=== PATIENT | male | born 1950 | race Caucasian/White ===

== ENCOUNTER → 2017-06-20 08:02 | Outpatient (CLI) | payer MEDICARE, SELFPAY ==
--- NOTE | 2017-06-20 08:30 | US_ITS ---
US abdomen complete HISTORY: Follow-up hepatitis C ITS.REASON: HEP C ORDERING PHYSICIAN: Tiffany Hassan PATIENT AGE: 67 years COMPARISON: 12/23/2016 FINDINGS: PANCREAS:Unremarkable. No obvious mass or abnormal fluid collection. No ductal dilatation LIVER:There remains coarse echogenicity of the liver consistent with hepatitis. No focal liver lesions are evident. There is appropriate directional blood flow within the portal vein. Portal vein is upper normal at 12 and 13 mm A 16 mm cyst is present in the left hepatic lobe unchanged RIGHT KIDNEY:Unremarkable. Normal size and echogenicity. No hydronephrosis LEFT KIDNEY:Unremarkable. No hydronephrosis. Normal size and echogenicity. GALLBLADDER:No gallstones, gallbladder wall thickening, pericholecystic fluid, or biliary dilatation. AORTA:No evidence of aneurysmal dilatation. SPLEEN:Mild splenomegaly at 16 cm ASCITES:None demonstrated. IMPRESSION: Stable ultrasound of the abdomen compared to the previous study. There remains coarse echogenicity of the liver in keeping with patient's history of cirrhosis. Benign-appearing anterior liver cyst unchanged. Portal vein is upper normal and there is splenomegaly which may be seen with portal hypertension not significant changed.
== END ==
PROVIDERS: PCP Family Medicine; Visit Provider Nurse Practitioner Acute Care
DX: B19.20 Unspecified viral hepatitis C without hepatic coma (principal)
CPT/HCPCS: 76700

== ENCOUNTER → 2021-02-23 15:18 | Outpatient (CLI) | payer MEDICARE, SELFPAY ==
--- NOTE | 2021-02-23 15:30 | ECG_ITS ---
APPROVED REPORT Exam: Resting ECG HR:96 bpm ECG Measurements Heart Rate 96 AXES MI 132 P 74 QRSd 74 QRS 37 QT 362 T 44 QTc 457 Conclusion Sinus rhythm with premature supraventricular complexes with occasional premature ventricular complexes Otherwise normal ECG Electronically signed by : Elias Wagner MD 02/23/2021 16:31:53
== END ==
PROVIDERS: PCP Family Medicine; Visit Provider Physician Assistant
DX: I49.9 Cardiac arrhythmia, unspecified (principal)
CPT/HCPCS: 93005

== ENCOUNTER → 2021-05-25 09:27 | Outpatient (CLI) | payer MEDICARE, SELFPAY ==
--- NOTE | 2021-05-25 09:38 | XR_ITS ---
FINAL REPORT CLINICAL HISTORY: RT wrist pain carpal tunnel x 2 years FINDINGS: RIGHT WRIST Three views demonstrate no acute fracture or dislocation. There are moderate to severe degenerative changes. There is a chronic calcification along the dorsal aspect of the radiocarpal joint. There is a loose body adjacent to the 1st CMC joint. There are vascular calcifications. IMPRESSION: Degenerative changes as described. Reviewed, Interpreted and Dictated by Corbin Wolff III, MD Transcribed by Mylene Hunt Authenticated by Corbin Wolff III, MD on 05/25/2021 11:03:49 AM [facility]
[2021-05-25 11:21] LABS: Basophils # 0.1 K/mm3 (0-0.2); Basophils % 0.7 % (0.1-2.0); Eosinophils # 0.3 K/mm3 (0.0-0.4); Hematocrit 46.8 % (42.0-52.0); Hemoglobin 15.3 g/dL (14.1-18.0); Lymphocytes # 1.5 K/mm3 (0.7-4.5); Lymphocytes % 15.2 % (10-50); Mean Corpuscular HGB Conc 32.7 g/dL (31.8-35.4); Mean Corpuscular Hemoglobin 32.6 pg (27.0-31.2); Mean Corpuscular Volume 99.6 fl (80-94); Mean Platelet Volume 8.9 fl (7.4-10.4); Monocytes # 0.6 K/mm3 (0.1-1.0); Monocytes % 6.2 % (1.7-9.3); Neutrophils # 7.1 K/mm3 (1.8-7.8); Neutrophils % 74.8 % (37.0-80.0); Platelet Count 203 K/mm3 (142-424); Red Cell Distribution Width 13.8 % (11.5-17.5); White Blood Count 9.5 K/mm3 (4.8-10.8)
[2021-05-25 13:25] LABS: Alanine Aminotransferase 36 U/L (12-78); Albumin/Globulin Ratio 1.7 (1.1-1.8); Alkaline Phosphatase 70 U/L (38-126); Anion Gap 15.3 mEq/L (5-15); Aspartate Amino Transferase 43 U/L (17-59); Bilirubin,Total 1.1 mg/dl (0.2-1.3); Blood Urea Nitrogen 25 mg/dl (9-20); Carbon Dioxide 29 mmol/L (22.0-30.0); Chloride 101 mmol/L (98-107); Estimated Glomerular Filt Rate 66 ml/min (>60); GFR (African American) 80 ML/MIN (>60); Globulin 2.9 g/dL (1.3-3.2); Glucose 111 mg/dl (74-100); Potassium 5.3 mmoL/L (3.5-5.1); Sodium 140 mmol/L (136-145); Total Protein,Serum 7.9 g/dl (6.3-8.2)
== END ==
PROVIDERS: PCP Family Medicine; Visit Provider Orthopaedic Surgery
DX: M25.531 Pain in right wrist (principal); Z01.818 Encounter for other preprocedural examination
CPT/HCPCS: 36415; 73110; 80053; 85025

== ENCOUNTER → 2021-06-20 09:10 | Outpatient (CLI) | payer MEDICARE, SELFPAY | PROVIDERS: PCP Family Medicine; Visit Provider Orthopaedic Surgery | DX: Z01.818 Encounter for other preprocedural examination (principal); Z11.52 Encounter for screening for COVID-19 | CPT/HCPCS: C9803; U0003; U0005 ==

== ENCOUNTER → 2021-06-27 08:44 | Outpatient (CLI) | payer MEDICARE, SELFPAY | PROVIDERS: PCP Family Medicine; Visit Provider Orthopaedic Surgery | DX: Z01.812 Encounter for preprocedural laboratory examination (principal); Z11.52 Encounter for screening for COVID-19 | CPT/HCPCS: C9803; U0003; U0005 ==

== ENCOUNTER 2021-06-29 06:04 | Day surgery (SDC) | payer MEDICARE, SELFPAY ==
[2021-06-29 06:18] VITALS: BP 156/97; PULSE 97; RESP 16; TEMP 36.9; O2SAT 98; BMI 25.8
[2021-06-29 08:28] VITALS: BP 124/73; PULSE 61; RESP 18; TEMP 36.5; O2SAT 96
--- NOTE | 2021-06-29 08:32 | HMH.OPNOTE ---
Date of procedure: 06/29/21 Pre-op Diagnosis:: right carpal tunnel syndrome Post-op Diagnosis:: same Procedure performed:: 93111: Right endoscopic carpal tunnel release Surgeon:: Torito Zhou JR, MD Anesthesia: MAC Estimated blood loss (mL): 2 Operative findings:: Release of transverse carpal ligament confirmed endoscopically Operative note:: 71-year-old male with carpal tunnel syndrome, thenar wasting. This caused difficulty with activities of daily living and the burning and tingling would sometimes wake him up at night. I had a discussion with him regarding further management. He was interested in more durable intervention. I recommended right endoscopic carpal tunnel release. He was amenable to plan. Patient was identified in preoperative holding. Operative site was marked in indelible ink. History, physical, consent were reviewed and updated. Patient was surrendered to the anesthesia team, taken to the operative suite, placed supine on a well-padded operative table. Brachial tourniquet was applied. Anesthesia was induced. The operative extremity was prepped and draped in the usual sterile fashion. The operative team donned sterile gowns and gloves and a timeout was called. All in attendance agreed regarding the patient's identity, procedure, operative site. Weight-based dose of antibiotics was given prior to incision. I made a transverse incision at the proximal wrist crease proximal to the transverse carpal ligament. I bluntly dissected through skin and subcutaneous tissue with care taken to avoid injuring the palmaris longus. I transected the fascia, inserted a dilating probe deep to the transverse carpal ligament and noted its depth distal to the transverse carpal ligament. I then inserted a cannula and scope, visualize the fibers of the transverse carpal ligament. I took to the distal aspect of the transverse carpal ligament to confirm its location, then with a curved blade under endoscopic visualization, transected the fibers of the transverse carpal ligament and noted that they retracted medially and laterally. I removed the cannula, achieved hemostasis, closed with Monocryl, Prineo and Dermabond. Counts were correct x2. There were no apparent complications. I was present and scrubbed for the entire case. Tourniquet time (min): 13 Condition: stable Disposition: PACU Complications:: none apparent
[2021-06-29 08:38] VITALS: BP 127/80; PULSE 75; RESP 20; O2SAT 96
[2021-06-29 08:48] VITALS: BP 126/78; PULSE 68; RESP 18; O2SAT 97
== END 2021-06-29 09:37 | disposition home or self-care (01) ==
LOC: OR 06:05
PROVIDERS: PCP Family Medicine; Visit Provider Orthopaedic Surgery
PROC: (CPT 64721; principal; 2021-06-29 07:30)
DX: G56.01 Carpal tunnel syndrome, right upper limb (principal); Z79.899 Other long term (current) drug therapy
CPT/HCPCS: 64721; 96374

== ENCOUNTER → 2021-10-25 08:44 | Outpatient (CLI) | payer MEDICARE, SELFPAY | PROVIDERS: PCP Family Medicine; Visit Provider Family Medicine | DX: G47.10 Hypersomnia, unspecified (principal); R06.83 Snoring; I10 Essential (primary) hypertension ==

== ENCOUNTER → 2022-04-09 14:33 | Outpatient (POV) | payer MEDICARE, SELFPAY | PROVIDERS: Visit Provider Dermatology | DX: Z00.00 Encounter for general adult medical examination without abnormal findings (principal) ==

== ENCOUNTER 2023-09-03 07:40 | Day surgery (SDC) | payer MEDICARE, SELFPAY ==
[2023-09-01 09:36] VITALS: BMI 25.7
[2023-09-03 08:03] VITALS: BP 142/78; PULSE 52; RESP 16; TEMP 36.4; O2SAT 100
[2023-09-03] MEDS: LACTATED RINGERS 1000ML 1,000 ML 100 ML IV (08:03)
--- NOTE | 2023-09-03 08:23 | ECG_ITS ---
APPROVED REPORT Exam: Resting ECG HR:86 bpm ECG Measurements Heart Rate 86 AXES WY 141 P 55 QRSd 83 QRS -25 QT 367 T 12 QTc 411 Conclusion SINUS RHYTHM WITH FREQUENT VENTRICULAR PREMATURE COMPLEXES ABNORMAL ECG UNCONFIRMED REPORT Electronically signed by : Elias Wagner MD 09/04/2023 15:55:23
[2023-09-03 08:50] VITALS: O2SAT 100
--- NOTE | 2023-09-03 09:17 | HMH.SCOPE ---
Procedure: Date: 09/03/23 Patient Date of :: 1950 Procedure Performed:: Colonoscopy Indications:: The patient is a 73-year-old who presents for surveillance colonoscopy for a history of polyps in the past. Performing Provider:: Dimitrios Gomez MD Referring Provider:: Jose Ladd MD Sedation:: See RN records Procedure:: After placing the patient in the left lateral decubitus position, the colonoscopy was gently inserted into the rectum and under direct visualization advanced to the cecum which was identified by transillumination in the right lower quadrant, identification of the ileocecal valve, appendiceal orifice, and cecal strap. Color, texture, mucosa, and anatomy of the colon were carefully examined with the scope. Findings:: The quality of the bowel preparation was good. There were 2 diminutive polyps found in the ascending colon. The polyps were removed with a cold forceps. There was 1 diminutive polyp in the transverse colon. The polyp was removed with a cold forceps. There were 2 diminutive polyps seen in the sigmoid colon. The polyps removed with a cold forceps. The remaining colon appeared normal. On retroflexion view internal hemorrhoids were seen. Impression: Polyps of ascending colon x 2 Polyp of transverse colon x 1 Polyps of sigmoid colon x 2 Recommendations:: Await pathology results Repeat colonoscopy in 3 to 5 years pending pathology results Complications:: None Estimated blood obtained (mL): 0 Colonoscopy Component Colonoscopy Component Was a colonoscopy performed during today's procedure?: Yes Recommended follow up colonoscopy of at least 10 years?: Yes
[2023-09-03 09:20] VITALS: BP 89/61; PULSE 67; RESP 14; TEMP 36.3; O2SAT 96
[2023-09-03 09:30] VITALS: BP 96/60; PULSE 68; RESP 14; O2SAT 95
[2023-09-03 09:40] VITALS: BP 100/58; PULSE 80; RESP 18; O2SAT 97
[2023-09-03 09:50] VITALS: BP 104/68; PULSE 65; RESP 18; O2SAT 97
--- NOTE | 2023-09-03 09:50 | P.PNANES_ITS ---
[facility] Disclaimer: The information contained in this section may have been updated after the patient was seen, as this information can be updated by other users. Medical History Hypertension Surgical History (Updated 09/03/23 @ 08:00 by Tiarra Bull RN) History of colonoscopy Family History Other No significant family history Social History Smoking Status: Former smoker second hand exposure: No alcohol intake: never substance use type: denies use current occupational status: retired Travel in the last 8 weeks: None household members: spouse housing: house current occupational exposures/hazards: No caffeine: Yes [facility] Anesthesia Checklist Patient Identification Patient Identification: Verbal (Name & ) Structural Data Admitted From: Home Planned Operative Procedure/s: colonoscopy Consent for Planned Operative Procedure(s) Verified: Yes Additional verifications Anesthesia Reactions: No Hx Blood Transfusions: No Blood Transfusion Reaction: No Airway Assessment Mallampati Score:: Class II C-Spine Mobility Assessed: Yes TMJ Mobility Assessed: Yes Dentition: Good Dentition Neurological Assessment Level of Consciousness: Awake, Alert and Appropriate Anesthesia Plan Anesthesia Risk discussed: Yes Anesthesia Plan: Verified ASA Class: II Anesthesia Type: MAC
== END 2023-09-03 09:55 | disposition home or self-care (01) ==
PROVIDERS: PCP Family Medicine; Visit Provider Internal Medicine
PROC: (CPT 45380; principal; 2023-09-03 09:00)
DX: Z12.11 Encounter for screening for malignant neoplasm of colon (principal); Z86.010 Personal history of colon polyps; K64.8 Other hemorrhoids; D12.3 Benign neoplasm of transverse colon; D12.2 Benign neoplasm of ascending colon
CPT/HCPCS: 45380; 93005